=== PATIENT | male | born 1990 | race Caucasian/White ===

== ENCOUNTER 2017-08-03 01:00 | Emergency (ER) | payer OTHER ==
[~2017-08-03] VITALS: Ht 182.9 cm; Wt 99.8 kg
[2017-08-03 01:04] VITALS: Ht 182.9 cm; Wt 99.8 kg
[2017-08-03 01:33] VITALS: BP 149/96
== END 2017-08-03 01:33 | disposition other institution (70) ==
LOC: ED 01:00
DX: Z04.2 Encounter for examination and observation following work accident (principal)